=== PATIENT | male | born 1955 | race Caucasian/White ===

== ENCOUNTER → 2022-05-20 | Emergency (ER) | payer SELFPAY ==
[~2022-05-20] VITALS: Ht 172.7 cm; Wt 152.6 kg
[2022-05-20 09:13] VITALS: BP 143/109
== END | disposition left against medical advice (07) ==
LOC: ER 08:20
DX: R04.0 Epistaxis (principal); Z53.21 Procedure and treatment not carried out due to patient leaving prior to being seen by health care provider